=== PATIENT | male | born 1975 | race Caucasian/White ===

== ENCOUNTER 2016-10-31 14:58 | Inpatient (IN) | payer BC ==
--- NOTE | ~2016-10-31 | HP ---
History And Physical [address] [place]. [address] NAME: KATE BYERS : 75 STATUS : ADM IN PAT#: [id number] AGE: 41 ADM/REG DATE : 10/31/16 MR#: [id number] REPORT SERV DATE: 11/01/16 DICTATED BY: OSMAN ESQUEDA III DATE: 10/31/16 REPORT STATUS : Draft TRANSCRIBED BY: MODShalonda DATE: 10/31/16 DATE OF ADMISSION: 10/31/2016 HISTORY OF PRESENT ILLNESS: Mr. Kate Byers is a 41-year-old white male transferred from [facility] in [place], [place], for cardiac evaluation. The patient had been in usual state of health until 2010. At that time, the patient noted the onset of irregular tachy palpitations lasting less than 10 seconds in duration. Telemetry monitoring during a sleep study demonstrated ventricular premature complexes. A 24-hour ambulatory electrocardiogram performed on 09/28/2012 demonstrated sinus rhythm with rate varying between 45 and 148 beats per minute. There were rare supraventricular and ventricular premature complex. There was no abnormal electrocardiographic correlate to the patient's "felt like a flutter." On 10/09/2012, the patient underwent an exercise electrocardiogram. The exercise electrocardiogram was normal. The patient recently presented with progressive dyspnea on exertion and fatigue. A 2D and Doppler echocardiogram performed on 10/23/2016 demonstrated findings consistent with a dilated cardiomyopathy with a mild reduction in global left ventricular systolic function, right ventricular enlargement, and mild biatrial enlargement. The estimated global left ventricular ejection fraction was in the range of 50-55%. The patient was begun on carvedilol 6.25 mg p.o. b.i.d. on 10/30/2016. The patient was subsequently admitted to [facility] for evaluation of facial flushing, perioral paresthesias, and chest pain. The patient's troponin I level was 0, CK-MB was 4.8 ng/mL and B-type natriuretic peptide level was 11 pg/mL. A CTA of the chest demonstrated. No evidence of a pulmonary embolus. A 12-lead electrocardiogram demonstrated sinus tachycardia rate of 107 beats per minute and left ventricular hypertrophy. The patient is now transferred to [facility] for cardiac catheterization to define coronary anatomy, left ventricular function and right heart pressures. The patient denied any further chest pain. The patient complained of occasional palpitations. The patient denied syncope, orthopnea, paroxysmal nocturnal dyspnea, and pedal edema. The patient has no history of rheumatic fever or a cardiac murmur. The patient's documented coronary artery disease risk factors include tobacco and hypertension. PAST MEDICAL HISTORY: 1. Obstructive sleep apnea. 2. Depression. 3. Hypertension. 4. Obesity. 5. Hyperlipoproteinemia. OPERATIVE PROCEDURES: 1. Status post left rotator cuff repair. 2. Status post rhinoplasty. 3. Status post laparoscopic cholecystectomy. ALLERGIES: NONE. MEDICATIONS: 1. Lisinopril 20 mg p.o. q.a.m. History And Physical [address] [address] NAME: KATE BYERS : 75 STATUS : ADM IN [facility]#: [id number] AGE: 41 ADM/REG DATE : 10/31/16 MR#: [id number] REPORT SERV DATE: 11/01/16 DICTATED BY: OSMAN ESQUEDA III DATE: 10/31/16 REPORT STATUS : Draft TRANSCRIBED BY: FALLON DATE: 10/31/16 2. Carvedilol 6.25 mg p.o. b.i.d. 3. Citalopram 10 mg p.o. daily. FAMILY HISTORY: Positive for hypertension, diabetes mellitus, cancer, stroke, anemia, and depression. Negative for myocardial infarction, seizures, kidney disease, liver disease, and arthritis. SOCIAL HISTORY: The patient chews tobacco. The patient drinks an occasional beer. PHYSICAL EXAMINATION: GENERAL: Demonstrated an alert, obese, younger white male in no acute distress. VITAL SIGNS: Demonstrated a temperature of 97.2 orally, respiratory rate of 16 breaths per minute, and a blood pressure of 129/81 mmHg with a heart rate of 56 beats per minute. SKIN: Warm and dry. NECK: Supple and nontender. There was no jugular venous distention at 90 degrees. There were no carotid bruits. BACK: Examination of the back demonstrated no spinal or costovertebral angle tenderness. CHEST: Examination of the chest demonstrated that it was clear to auscultation. There were no crackles, rhonchi, wheezes, or pleural rubs. There was symmetrical expansion of the chest. CARDIAC: Cardiac examination demonstrated a nonpalpable apical impulse. There was a regular rhythm and rate without murmur, rub, gallop, or mid systolic click. There were no thrills or heaves. ABDOMEN: Examination of the abdomen demonstrated that it was obese, soft, and protuberant. There was no appreciable hepatosplenomegaly or masses. Bowel sounds were intact. There were no abdominal or femoral bruits. EXTREMITIES: Examination of the extremities demonstrated that they were symmetrical. There was full range of motion without cyanosis, clubbing, or edema. ASSESSMENT: Mr. Kate Byesr is a 41-year-old white male with four other risk factors for coronary atherosclerotic disease (i.e. obesity, hyperlipoproteinemia, hypertension, tobacco use) and [place] Heart Association (NYHA) class 1 congestive heart failure resulting from a dilated cardiomyopathy with a mild reduction in global left ventricular systolic function. The patient is transferred for right and left heart catheterization to define coronary anatomy, left ventricular function, and right heart pressures. Options, potential risks, and benefits of the procedure were discussed with the patient. The patient accepted these risks and wished to proceed. /FALLON Osman Esqueda III, M.D., [facility], [facility] / [id number] History And Physical [address] [address] NAME: KATE BYERS : 75 STATUS : ADM IN [facility]#: [id number] AGE: 41 ADM/REG DATE : 10/31/16 MR#: [id number] REPORT SERV DATE: 11/01/16 DICTATED BY: OSMAN ESQUEDA III DATE: 10/31/16 REPORT STATUS : Draft TRANSCRIBED BY: FALLON DATE: 10/31/16 CC: Osman Esqueda III, M.D., [facility], [facility]
--- NOTE | ~2016-10-31 | OP ---
Record Of Operation [facility] [address] [place]. [address] NAME: KATE BYERS : 75 STATUS : DIS IN PAT#: [id number] AGE: 41 ADM/REG DATE : 10/31/16 MR#: [id number] REPORT SERV DATE: 11/14/16 DICTATED BY: OSMAN BENTON III DATE: 11/13/16 REPORT STATUS : Draft TRANSCRIBED BY: MODL DATE: 11/13/16 DATE OF PROCEDURE: 11/01/2016 REFERRING PHYSICIAN: Unknown, please call my office and request his name. PROCEDURAL SERVICE TECH: Osman Benton M.D., [facility], [facility]. INDICATION: Mr. Kate Byers is a 41-year-old white male with four other risk factors for coronary atherosclerotic disease (i.e. obesity, hyperlipoproteinemia, hypertension, tobacco use) and [place] Heart Association class I congestive heart failure secondary to a dilated cardiomyopathy with a mild reduction in global left ventricular systolic function. The patient was referred for right and left heart catheterization to define coronary anatomy, left ventricular function, and right heart pressures. Options, potential risks, and benefits of the procedure were discussed with the patient. The patient accepted these risks and wished to proceed. PROCEDURE DESCRIPTION: 1. Right heart catheterization. 2. Left heart catheterization. 3. Left ventriculogram. 4. Left and right coronary angiograms. 5. Limited right iliofemoral angiogram. CONTRAST: Iopamidol 120 mL. MEDICATIONS: 1. Midazolam 4 mg intravenously, in divided doses. 2. Sublimaze 200 mcg intravenously, in divided doses. EQUIPMENT: 1. 4-Burmese Cook micropuncture with stiffened cannula. 2. 0.035 inch PTFE coated, 150 cm, 3 mm J Cordis Festus guidewire. 3. 6-Burmese Cordis Babs MS sheath (RFA). 4. 0.035-inch stainless steel, 35 cm, 3 mm J guidewire. 5. 7-Burmese, 11 cm Cordis Babs MS sheath (RFV). 6. 6-Burmese, 110 cm pigtail-145 catheter. 7. 7-Burmese, 110 cm Stock [place]-Cammy thermodilution catheter. 8. 6-Burmese, 100 cm #5 curve left coronary artery Peg catheter. 9. 6-Burmese, 100 cm Genaro 3D right coronary artery catheter. 10.6-Burmese Haley Perclose ProGlide vascular closure device. COMPLICATIONS: None. RADIATION DOSE: 697 mGy. ESTIMATED BLOOD LOSS: 15 mL. Record Of Operation [facility] [place]. [address] NAME: KATE BYERS : 75 STATUS : DIS IN PAT#: [id number] AGE: 41 ADM/REG DATE : 10/31/16 MR#: [id number] REPORT SERV DATE: 11/14/16 DICTATED BY: OSMAN BENTON III DATE: 11/13/16 REPORT STATUS : Draft TRANSCRIBED BY: FALLON DATE: 11/13/16 OXIMETRIC DATA: The oxygen saturation in the superior vena cava was 75%. The oxygen saturation in the pulmonary artery was 77%. There was no significant step-up in oxygen saturation between the superior vena cava and the pulmonary artery. HEMODYNAMIC DATA: Prior to the injection of contrast, the central aortic pressure was 128/80 mmHg with a mean of 96 mmHg. The left ventricular pressure was 135/18 mmHg. The pulmonary capillary wedge pressure demonstrated a-wave of 23 mmHg, v-wave of 21 mmHg, and a mean of 16 mmHg. The pulmonary artery pressure was 38/20 mmHg with a mean of 26 mmHg. The right ventricular pressure was 40/15 mmHg. The right atrial pressure demonstrated an a-wave of 14 mmHg, v-wave of 12 mmHg and a mean of 10 mmHg. The cardiac output and cardiac index as determined by using the thermodilution technique were 7.5 L/minute and 3.0 L/minute/sq m, respectively. The pulmonary vascular resistance and pulmonary vascular resistance index were 107 dynes- seconds over centimeters to the fifth power and 263, respectively. The systemic vascular resistance and systemic vascular resistance index were 916 dynes-seconds over centimeters to the fifth power and 2253, respectively. ANGIOGRAPHIC DATA: Limited right iliofemoral angiography demonstrated minor luminal irregularities of the distal external iliac and common femoral arteries. The puncture site was located in the common femoral artery. Single plane 30-degree CHÁVEZ left ventriculography demonstrated that the left ventricle was moderately enlarged. There was anterolateral, apical, diaphragmatic and posterobasal hypokinesis. Global left ventricular systolic function was mildly reduced. There was no mitral regurgitation. The left main coronary artery was a large caliber, long vessel. There was an eccentric 25% stenosis involving the origin and proximal portion of the left main coronary artery. The left main coronary artery trifurcated into a large caliber left anterior descending, small to medium caliber ramus intermedius and a large caliber, nondominant left circumflex coronary arteries. The left anterior descending coronary artery gave rise to two major septal perforators and one large caliber diagonal branch, before supplying the left ventricular apex. There were diffuse irregularities of the proximal, mid, and distal portions of the left anterior descending coronary artery. The left anterior descending coronary artery was free of angiographically significant obstructive epicardial coronary artery disease. The ramus intermedius was a small to medium caliber, normal vessel. The left circumflex coronary artery was a large caliber, nondominant vessel. The left circumflex coronary artery gave rise to one large caliber obtuse marginal branch and no posterolateral segment branches. The left circumflex coronary artery was normal. The right coronary artery was a large caliber, dominant vessel. The right coronary artery Record Of [address] [address] NAME: KATE BYERS : 75 STATUS : DIS IN PAT#: [id number] AGE: 41 ADM/REG DATE : 10/31/16 MR#: [id number] REPORT SERV DATE: 11/14/16 DICTATED BY: OSMAN BENTON III DATE: 11/13/16 REPORT STATUS : Draft TRANSCRIBED BY: FALLON DATE: 11/13/16 gave rise to a conus branch, sinoatrial branch, small caliber first right ventricular branch, small caliber second right ventricular branch, medium caliber third right ventricular branch, small caliber acute marginal branch, small to medium caliber posterior descending coronary artery, small caliber first posterior left ventricular branch and a medium caliber second posterior left ventricular branch. The right coronary artery was normal. PATIENT DISPOSITION: Coronary Short Stay Unit. CONCLUSIONS: 1. Anterolateral apical, diaphragmatic and posterobasal hypokinesis, with a mild reduction in global left ventricular systolic function. 2. Elevated left ventricular end-diastolic pressure. 3. Angiographically insignificant epicardial coronary artery disease. 4. Right dominant coronary anatomy. 5. Mild secondary post capillary pulmonary hypertension. 6. Elevated right ventricular end-diastolic pressure. RECOMMENDATIONS: Carvedilol, ramipril, cardiac rehabilitation program, and an evaluation for nonischemic etiologies of a dilated cardiomyopathy. LH/MODL Osman Benton III, M.D., [facility], [facility] / [id number] CC: Osman Benton III, M.D., [facility] Ji Olmstead M.D.
[~2016-10-31 14:58] MED LIST: CELEXA10 PO; PRIN20 PO; VOLT50 PO
[2016-10-31] MEDS ORDERED: CELEXA10 PO (15:28)
[2016-10-31] MEDS ORDERED: COREG6 PO (15:28)
[2016-10-31] MEDS ORDERED: PRIN20 PO (15:29)
[2016-10-31] MEDS ORDERED: NYSTATIN-TRIAMC15 GM TOP (15:33)
[2016-10-31] MEDS ORDERED: ALEVE220 MG PO (15:34)
[2016-11-01 06:11] LABS: BASOPHILS 0.1 %; BASOPHILS ABSOLUTE 0.01 10/3/uL (0.0-0.16); EOSINOPHILS 1.9 %; EOSINOPHILS ABSOLUTE 0.13 10/3/uL (0.0-0.53); HEMATOCRIT 38.5 % (40.0-51.0); HEMOGLOBIN 13.3 g/dL (13.6-17.8); IMMATURE GRANULOCYTES 0.6 %; IMMATURE GRANULOCYTES ABSOLUTE 0.04 10/3/uL (0.0-0.11); LYMPHOCYTES 29.9 %; LYMPHOCYTES ABSOLUTE 2.05 10/3/uL (0.67-4.30); MANUAL DIFF NO %; MEAN CORPUS HGB CONC 34.5 g/dL (32.0-36.0); MEAN CORPUSCULAR HEMOGLOB 31.2 pg (26.0-34.0); MEAN CORPUSCULAR VOLUME 90.4 fL (80-100); MEAN PLATELET VOLUME 10.4 fL (9.2-13.0); MONOCYTES 10.9 %; MONOCYTES ABSOLUTE 0.75 10/3/uL (0.21-1.20); NEUTROPHILS 56.6 %; NEUTROPHILS ABSOLUTE 3.87 10/3/uL (2.02-8.40); PLATELET COUNT 173 10/3/uL (150-400); RBC DISTRIBUTION WIDTH 13.4 % (12.0-16.0); RED CELL COUNT 4.26 10/6/uL (4.7-6.1); WHITE BLOOD CELLS 6.9 10/3/uL (4.5-10.5)
[2016-11-01 06:27] LABS: BUN (BLOOD UREA NITROGEN) 17 MG/DL (6-23); CHLORIDE, SERUM 107 MMOL/L (96-112); CO2 (CARBON DIOXIDE) 28 MMOL/L (24-34); GFR AFRICAN AMERICAN 96 ML/MIN (>=60); GFR NON AFRICAN AMERICAN 83 ML/MIN (>=60); GLUCOSE, SERUM 107 MG/DL (60-99); POTASSIUM, SERUM 3.8 MMOL/L (3.5-5.3); SODIUM, SERUM 142 MMOL/L (135-148)
== END 2016-11-02 12:10 | disposition home or self-care (01) | DRG 287 ==
LOC: 7NO 14:58
PROVIDERS: Internal Medicine Cardiovascular Disease
PROC: 4A023N8 Measurement of Cardiac Sampling and Pressure, Bilateral, Percutaneous Approach (ICD-10-PCS; principal; 2016-11-01)
PROC: B2151ZZ Fluoroscopy of Left Heart using Low Osmolar Contrast (ICD-10-PCS; 2016-11-01)
PROC: B2111ZZ Fluoroscopy of Multiple Coronary Arteries using Low Osmolar Contrast (ICD-10-PCS; 2016-11-01)
DX: I25.10 Atherosclerotic heart disease of native coronary artery without angina pectoris (principal); I42.0 Dilated cardiomyopathy; I47.1 Supraventricular tachycardia; I10 Essential (primary) hypertension; E78.5 Hyperlipidemia, unspecified; E66.9 Obesity, unspecified; F17.210 Nicotine dependence, cigarettes, uncomplicated; I49.3 Ventricular premature depolarization; G47.33 Obstructive sleep apnea (adult) (pediatric); F32.9 Major depressive disorder, single episode, unspecified; Z98.890 Other specified postprocedural states; Z82.49 Family history of ischemic heart disease and other diseases of the circulatory system; Z82.3 Family history of stroke; Z83.3 Family history of diabetes mellitus; Z68.32 Body mass index [BMI] 32.0-32.9, adult
CPT/HCPCS: 80048; 82803; 85025; 93005; 93460; A9270-GY; C1760; C1769; C1894; J2250; J2405; J3010; Q9967